=== PATIENT | female | born 1960 | race African-American/Black ===

== ENCOUNTER 2017-07-11 18:14 | Observation (INO) | payer MEDICAID, OTHER ==
[~2017-07-11] VITALS: Ht 172.7 cm; Wt 130.0 kg
[~2017-07-11 18:14] MED LIST: FLEX5TAB OR; IBUP800T23 PO; PRED20 PO; ULTR50TA OR
[2017-07-11 18:15] VITALS: BP 201/101; PULSE 56; RESP 26; TEMP 96.5; O2SAT 98
[2017-07-11] MEDS ORDERED: IOHEXOL 350 MG/ML 10 ML VIAL (for RAD DIAG) IVCONTRAST ONE (18:15)
[2017-07-11] MEDS ORDERED: MELO7.5T27 PO (18:28)
[2017-07-11] MEDS ORDERED: SODIUM CHLOR 0.9% 1000 ML INJ 1,000 ML IV ONE (18:30)
[2017-07-11] MEDS ORDERED: ONDANSETRON HCL 4 MG/2 ML VIAL IV PUSH ONE (18:30)
--- NOTE | 2017-07-11 18:42 | PD ---
HPI Chief Complaint: GI Complaint Time Seen by Provider: 18:19 Travel History International Travel<30 days: No Contact w/Intl Traveler<30days: No Traveled to known affect area: No History of Present Illness HPI 56-year-old female that presents to the ED for evaluation of nausea and dizziness. Per patient she's had this since last night but more severe today. Per patient she feels like the room spinning. She feels nauseous and she's been vomiting. She does having some abdominal discomfort with many from vomiting. She states that anything makes her dizzy. She didn't take anything for this. She denies any medical issues. No history of diabetes or high blood pressure. No chest pain. No shortness of breath. No headache. No blurry vision or double vision. No urinary or bowel movement issues. Almost per patient states that currently she has no pain but she is having low nausea and vomiting and she can barely keep her eyes open no feeling severely nauseous. Denies any history of this in the past. No recent travel. No injuries or trauma. No other medical issues. No allergies to medication. PFSH Past Medical History Diminished Hearing: No Immunizations Current: No Tetanus Vaccination: Unknown Influenza Vaccination: No Tubal Ligation: Yes Past Surgical History Section: Yes (CS X 1) Other Surgery: Yes (I AND D DUE TO SKIN ABSCESS ) Social History Alcohol Use: Yes Tobacco Use: No Substance Use: Yes (MARIJUANA) Allergies-Medications (Allergen,Severity, Reaction): Coded Allergies: No Known Allergies (Verified Adverse Reaction, Unknown, 07/11/17) Reported Meds & Prescriptions Reported Meds & Active Scripts Active Reported Meloxicam 7.5 Mg Tab 7.5 Mg PO DAILY Review of Systems Except as stated in HPI: all other systems reviewed are Neg Physical Exam Narrative GENERAL: Morbidly obese female SKIN: Warm and dry. HEAD: Atraumatic. Normocephalic. EYES: Pupils equal and round. No scleral icterus. No injection or drainage. ENT: No nasal bleeding or discharge. Mucous membranes pink and moist. Tongue is midline. No uvula deviation. TMs are clear with no sign of infection or perforation bilaterally. No lymphadenopathy noted. No meningeal signs noted. NECK: Trachea midline. No JVD. CARDIOVASCULAR: Regular rate and rhythm. No murmurs, S3, S4. RESPIRATORY: No accessory muscle use. Clear to auscultation. Breath sounds equal bilaterally. GASTROINTESTINAL: Abdomen soft, non-tender, nondistended. Hepatic and splenic margins not palpable. MUSCULOSKELETAL: Extremities without clubbing, cyanosis, or edema. No obvious deformities. Full range of motion of the upper and lower extremities bilaterally. 2+ pulses bilaterally. NEUROLOGICAL: Awake and alert. No obvious cranial nerve deficits. Motor grossly within normal limits. Five out of 5 muscle strength in the arms and legs. Normal speech. PSYCHIATRIC: Appropriate mood and affect; insight and judgment normal. Data Data Last Documented VS Vital Signs Date Time Temp Pulse Resp B/P (MAP) Pulse Ox O2 Delivery O2 Flow Rate FiO2 07/11/17 20:27 46 16 150/65 (93) 97 07/11/17 18:44 Room Air 07/11/17 18:15 96.5 Orders Orders Electrocardiogram (07/11/17 18:29) Complete Blood Count With Diff (07/11/17 18:29) Comprehensive Metabolic Panel (07/11/17 18:29) Ckmb (Isoenzyme) Profile (07/11/17 18:29) Troponin I (07/11/17 18:29) Lipase (07/11/17 18:29) Urinalysis - C+S If Indicated (07/11/17 18:29) Magnesium (Mg) (07/11/17 18:29) Thyroid Stimulating Hormone (07/11/17 18:29) Chest, Single Ap (07/11/17 18:29) Ct Brain W/O Iv Contrast(Rout) (07/11/17 18:29) Iv Access Insert/Monitor (07/11/17 18:29) Ecg Monitoring (07/11/17 18:29) Oximetry (07/11/17 18:29) Sodium Chlor 0.9% 1000 Ml Inj (Ns 1000 M (07/11/17 18:30) Ondansetron Inj (Zofran Inj) (07/11/17 18:30) Ct Abd/Pel W Iv Contrast(Rout) (07/11/17 ) Lorazepam Inj (Ativan Inj) (07/11/17 19:45) CKMB (07/11/17 19:39) CKMB% (07/11/17 19:39) Iohexol 350 Inj (Omnipaque 350 Inj) (07/11/17 18:15) Admit Order (Ed Use Only) (07/11/17 21:20) Labs Laboratory Tests Test 07/11/17 18:45 07/11/17 19:39 White Blood Count 7.1 TH/MM3 Red Blood Count 4.84 MIL/MM3 Hemoglobin 14.5 GM/DL Hematocrit 43.7 % Mean Corpuscular Volume 90.2 FL Mean Corpuscular Hemoglobin 29.9 PG Mean Corpuscular Hemoglobin Concent 33.1 % Red Cell Distribution Width 14.6 % Platelet Count 214 TH/MM3 Mean Platelet Volume 8.9 FL Neutrophils (%) (Auto) 67.5 % Lymphocytes (%) (Auto) 27.4 % Monocytes (%) (Auto) 4.1 % Eosinophils (%) (Auto) 0.4 % Basophils (%) (Auto) 0.6 % Neutrophils # (Auto) 4.8 TH/MM3 Lymphocytes # (Auto) 1.9 TH/MM3 Monocytes # (Auto) 0.3 TH/MM3 Eosinophils # (Auto) 0.0 TH/MM3 Basophils # (Auto) 0.0 TH/MM3 CBC Comment DIFF FINAL Differential Comment Blood Urea Nitrogen 12 MG/DL Creatinine 0.89 MG/DL Random Glucose 144 MG/DL Total Protein 7.3 GM/DL Albumin 3.6 GM/DL Calcium Level 8.8 MG/DL Magnesium Level 1.8 MG/DL Alkaline Phosphatase 117 U/L Aspartate Amino Transf (AST/SGOT) 20 U/L Alanine Aminotransferase (ALT/SGPT) 14 U/L Total Bilirubin 0.5 MG/DL Sodium Level 141 MEQ/L Potassium Level 4.0 MEQ/L Chloride Level 108 MEQ/L Carbon Dioxide Level 23.7 MEQ/L Anion Gap 9 MEQ/L Estimat Glomerular Filtration Rate 79 ML/MIN Total Creatine Kinase 161 U/L Creatine Kinase MB 5.0 NG/ML Troponin I LESS THAN 0.02 NG/ML Lipase 68 U/L Thyroid Stimulating Hormone 3rd Gen 2.790 uIU/ML MDM Medical Decision Making Medical Screen Exam Complete: Yes Emergency Medical Condition: Yes Medical Record Reviewed: Yes Interpretation(s) CBC & BMP Diagram 07/11/17 18:45 07/11/17 19:39 Total Protein 7.3, Albumin 3.6, Calcium Level 8.8, Magnesium Level 1.8, Alkaline Phosphatase 117, Aspartate Amino Transf (AST/SGOT) 20, Alanine Aminotransferase (ALT/SGPT) 14, Total Bilirubin 0.5 CT head negative EKG shows sinus rhythm with no sign of acute ischemia but sinus bradycardia in the 40s troponin and CKMB negative TSH WNL CT abdomen WNL Differential Diagnosis Dizziness versus vertigo versus nausea versus gastritis versus gastroenteritis versus CVA versus ACS versus acute abdomen Narrative Course 56-year-old female that presents to the ED for evaluation of dizziness and nausea. Patient was properly examined and was found to have signs and symptoms. possible vertigo. Labs and imaging were ordered. Patient was given IV fluids and Zofran as she is actively vomiting. Labs and imaging showed no sign of acute disease other than what appears to be sinus bradycardia. Patient still very symptomatic. Patient cannot stand up without feeling nauseous and almost threw up when we try to get her up. At this time recommendation is for admission for further eval. She agrees with this plan. Case discussed with Dr Mo who agrees to obs admission. Diagnosis Primary Impression: Dizziness Additional Impressions: Nausea & vomiting Qualified Codes: R11.2 - Nausea with vomiting, unspecified Bradycardia Admitting Information Admitting Physician Requests: Observation Bo Victoria Jul 11, 2017 18:42
[2017-07-11 18:44] VITALS: RESP 16; O2SAT 99
--- NOTE | 2017-07-11 18:59 | RADRPT ---
EXAM DATE/TIME: 07/11/2017 18:52 [facility] COMPARISON: No previous studies available for comparison. INDICATIONS : Dizziness. RADIATION DOSE: 56.35 CTDIvol (mGy) MEDICAL HISTORY : None SURGICAL HISTORY : Tubal ligation. ENCOUNTER: Initial ACUITY: 1 day PAIN SCALE: 0/10 LOCATION: cranial TECHNIQUE: Multiple contiguous axial images were obtained of the head. Using automated exposure control and adj ustment of the mA and/or kV according to patient size, radiation dose was kept as low as reasonably a chievable to obtain optimal diagnostic quality images. DICOM format image data is available electro nically for review and comparison. FINDINGS: CEREBRUM: Ventricle's are within normal limits. There is a nonspecific 6 mm calcification in the right occipita l lobe. No evidence of midline shift, mass lesion, hemorrhage or acute infarction. No extra-axial f luid collections are seen. POSTERIOR FOSSA: The cerebellum and brainstem demonstrate no acute finding. The 4th ventricle is midline. The cerebe llopontine angle is unremarkable. EXTRACRANIAL: Visualized sinuses are clear. SKULL: The calvaria is intact. No evidence of skull fracture. CONCLUSION: No acute intracranial abnormality is identified. Phu Henley MD on July 11, 2017 at 18:55 Board Certified Radiologist. This report was verified electronically.
[2017-07-11 19:02] LABS: AUTOMATED NEUTROPHIL # 4.8 TH/MM3 (1.8-7.7); BASOPHIL % 0.6 % (0.0-2.0); EOSINOPHIL % 0.4 % (0.0-4.0); HEMATOCRIT 43.7 % (35.0-46.0); HEMOGLOBIN 14.5 GM/DL (11.6-15.3); LYMPH % 27.4 % (9.0-44.0); LYMPHOCYTE # 1.9 TH/MM3 (1.0-4.8); MEAN CELL VOLUME 90.2 FL (80.0-100.0); MEAN CORPUSCULAR HEMOGLOBIN 29.9 PG (27.0-34.0); MEAN CORPUSCULAR HGB CONC 33.1 % (32.0-36.0); MEAN PLATELET VOLUME 8.9 FL (7.0-11.0); MONO % 4.1 % (0.0-8.0); MONOCYTE # 0.3 TH/MM3 (0-0.9); NEUT % 67.5 % (16.0-70.0); PLATELET COUNT 214 TH/MM3 (150-450); RED BLOOD COUNT 4.84 MIL/MM3 (4.00-5.30); RED CELL DISTRIBUTION WIDTH 14.6 % (11.6-17.2); WHITE BLOOD COUNT 7.1 TH/MM3 (4.0-11.0)
--- NOTE | 2017-07-11 19:12 | RADRPT ---
EXAM DATE/TIME: 07/11/2017 18:59 [facility] COMPARISON: No previous studies available for comparison. INDICATIONS : Shortness of breath. MEDICAL HISTORY : None. SURGICAL HISTORY : Tubal ligation. ENCOUNTER: Initial ACUITY: 1 day PAIN SCORE: 0/10 LOCATION: Bilateral chest FINDINGS: Portable AP view of the chest demonstrates a normal-sized cardiac silhouette. No effusion, consolidat ion, or pneumothorax is visualized. The bones and soft tissues demonstrate no acute abnormality. Lung s are mildly underinflated with atelectasis at the bases. EKG lines overlie the patient. CONCLUSION: Underinflation with atelectasis at the bases. Otherwise, no acute finding is identified. Phu Henley MD on July 11, 2017 at 19:09 Board Certified Radiologist. This report was verified electronically.
[2017-07-11] MEDS ORDERED: LORazepam 2 MG/ML VIAL IV PUSH ONE (19:45)
[2017-07-11 20:07] LABS: ALT (GPT) 14 U/L (10-53)
[2017-07-11 20:24] LABS: ALBUMIN 3.6 GM/DL (3.4-5.0); ALKALINE PHOSPHATASE 117 U/L (45-117); AST (GOT) 20 U/L (15-37); BICARBONATE 23.7 MEQ/L (21.0-32.0); BLOOD UREA NITROGEN 12 MG/DL (7-18); CALCIUM 8.8 MG/DL (8.5-10.1); CHLORIDE 108 MEQ/L (98-107); CREATININE 0.89 MG/DL (0.50-1.00); GLOMERULAR FILTRATION RATE 79 ML/MIN (>89); GLUCOSE,RANDOM 144 MG/DL (74-106); MAGNESIUM 1.8 MG/DL (1.5-2.5); SODIUM (NA) 141 MEQ/L (136-145); TOTAL BILIRUBIN ADULT 0.5 MG/DL (0.2-1.0); TOTAL PROTEIN 7.3 GM/DL (6.4-8.2); TROPONIN I LESS THAN 0.02 NG/ML (0.02-0.05)
[2017-07-11 20:27] VITALS: BP 150/65; PULSE 46; RESP 16; O2SAT 97
--- NOTE | 2017-07-11 20:56 | RADRPT ---
EXAM DATE/TIME: 07/11/2017 20:38 [facility] COMPARISON: No previous studies available for comparison. INDICATIONS : Abdominal pain, fever, and body aches. IV CONTRAST: 97 cc Omnipaque 350 (iohexol) IV ORAL CONTRAST: No oral contrast ingested. RADIATION DOSE: 26.88 CTDIvol (mGy) ; Patient body habitus MEDICAL HISTORY : None SURGICAL HISTORY : Tubal ligation. ENCOUNTER: Initial ACUITY: 1 day PAIN SCALE: 5/10 LOCATION: abdomen TECHNIQUE: Volumetric scanning of the abdomen and pelvis was performed. Using automated exposure control and ad justment of the mA and/or kV according to patient size, radiation dose was kept as low as reasonably achievable to obtain optimal diagnostic quality images. DICOM format image data is available electro nically for review and comparison. FINDINGS: LOWER LUNGS: The visualized lower lungs are clear. LIVER: Homogeneous density without lesion. There is no dilation of the biliary tree. No calcified gallston es. SPLEEN: Normal size without lesion. PANCREAS: Within normal limits. KIDNEYS: Normal in size and shape. There is no mass, stone or hydronephrosis. An incidental 6 mm low density lesion is present in the left mid kidney and is too small to characterize. ADRENAL GLANDS: Within normal limits. VASCULAR: There is no aortic aneurysm. BOWEL/MESENTERY: The stomach, small bowel, and colon demonstrate no acute abnormality. There is no free intraperitone al air or fluid. There is a small hiatal hernia. ABDOMINAL WALL: There is a small fat-containing umbilical hernia in the midline superior to the umbilicus. RETROPERITONEUM: There is no lymphadenopathy. BLADDER: No wall thickening or mass. REPRODUCTIVE: Uterus has a lobulated contour. INGUINAL: There is no lymphadenopathy or hernia. MUSCULOSKELETAL: There is severe end-stage right hip joint osteoarthritis with severe joint space narrowing and osteop hytes with mild acetabular protrusio. Left total hip arthroplasty hardware is present and causes beam hardening artifact in the pelvis. CONCLUSION: 1. No acute finding is identified within the abdomen or pelvis. 2. 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 Phu Henley MD on July 11, 2017 at 20:50 Board Certified Radiologist. This report was verified electronically.
--- NOTE | 2017-07-11 21:21 | PD ---
Physical Exam Date Seen by Provider: Jul 11, 2017 Narrative This patient presents with nausea and dizziness. Data Data Last Documented VS Vital Signs Date Time Temp Pulse Resp B/P (MAP) Pulse Ox O2 Delivery O2 Flow Rate FiO2 07/11/17 20:27 46 16 150/65 (93) 97 07/11/17 18:44 Room Air 07/11/17 18:15 96.5 Orders Orders Electrocardiogram (07/11/17 18:29) Complete Blood Count With Diff (07/11/17 18:29) Comprehensive Metabolic Panel (07/11/17 18:29) Ckmb (Isoenzyme) Profile (07/11/17 18:29) Troponin I (07/11/17 18:29) Lipase (07/11/17 18:29) Urinalysis - C+S If Indicated (07/11/17 18:29) Magnesium (Mg) (07/11/17 18:29) Thyroid Stimulating Hormone (07/11/17 18:29) Chest, Single Ap (07/11/17 18:29) Ct Brain W/O Iv Contrast(Rout) (07/11/17 18:29) Iv Access Insert/Monitor (07/11/17 18:29) Ecg Monitoring (07/11/17 18:29) Oximetry (07/11/17 18:29) Sodium Chlor 0.9% 1000 Ml Inj (Ns 1000 M (07/11/17 18:30) Ondansetron Inj (Zofran Inj) (07/11/17 18:30) Ct Abd/Pel W Iv Contrast(Rout) (07/11/17 ) Lorazepam Inj (Ativan Inj) (07/11/17 19:45) CKMB (07/11/17 19:39) CKMB% (07/11/17 19:39) Iohexol 350 Inj (Omnipaque 350 Inj) (07/11/17 18:15) Admit Order (Ed Use Only) (07/11/17 21:20) Labs Laboratory Tests Test 07/11/17 18:45 07/11/17 19:39 White Blood Count 7.1 TH/MM3 Red Blood Count 4.84 MIL/MM3 Hemoglobin 14.5 GM/DL Hematocrit 43.7 % Mean Corpuscular Volume 90.2 FL Mean Corpuscular Hemoglobin 29.9 PG Mean Corpuscular Hemoglobin Concent 33.1 % Red Cell Distribution Width 14.6 % Platelet Count 214 TH/MM3 Mean Platelet Volume 8.9 FL Neutrophils (%) (Auto) 67.5 % Lymphocytes (%) (Auto) 27.4 % Monocytes (%) (Auto) 4.1 % Eosinophils (%) (Auto) 0.4 % Basophils (%) (Auto) 0.6 % Neutrophils # (Auto) 4.8 TH/MM3 Lymphocytes # (Auto) 1.9 TH/MM3 Monocytes # (Auto) 0.3 TH/MM3 Eosinophils # (Auto) 0.0 TH/MM3 Basophils # (Auto) 0.0 TH/MM3 CBC Comment DIFF FINAL Differential Comment Blood Urea Nitrogen 12 MG/DL Creatinine 0.89 MG/DL Random Glucose 144 MG/DL Total Protein 7.3 GM/DL Albumin 3.6 GM/DL Calcium Level 8.8 MG/DL Magnesium Level 1.8 MG/DL Alkaline Phosphatase 117 U/L Aspartate Amino Transf (AST/SGOT) 20 U/L Alanine Aminotransferase (ALT/SGPT) 14 U/L Total Bilirubin 0.5 MG/DL Sodium Level 141 MEQ/L Potassium Level 4.0 MEQ/L Chloride Level 108 MEQ/L Carbon Dioxide Level 23.7 MEQ/L Anion Gap 9 MEQ/L Estimat Glomerular Filtration Rate 79 ML/MIN Total Creatine Kinase 161 U/L Creatine Kinase MB 5.0 NG/ML Troponin I LESS THAN 0.02 NG/ML Lipase 68 U/L Thyroid Stimulating Hormone 3rd Gen 2.790 uIU/ML MDM Supervised Visit with LUZ: Yes Narrative Course I, Dr. Gutierrez, have reviewed the advance practice practitioner's documentation and am in agreement, met with the patient face to face, made the diagnosis, and the medical decision making was done by me. *My assessment and Findings: Patient is awake and alert. She is not hypotensive. She has been bradycardic. She does not take any medications to explain the bradycardia. The bradycardia is sinus. See Jacquelin Duran note for lab and radiology results, final diagnosis and disposition Lynn Gutierrez MD Jul 11, 2017 21:21
--- NOTE | 2017-07-11 21:26 | HHI.HP ---
[facility] Phu Doll MD Admission Diagnosis dizziness, nausea, vertigo, bradycardia Diagnoses: (1) Vertigo Diagnosis: Principal (2) Intractable nausea and vomiting Diagnosis: Principal (3) Dehydration Diagnosis: Principal (4) Bradycardia Diagnosis: Principal Travel History International Travel<30 Days: No Contact w/Intl Traveler <30 Da: No Traveled to Known Affected Are: No History of Present Illness This is a 56-year-old female with no reported PMH who presented to the ER with complaints of dizziness in addition to nausea and vomiting. States symptoms started acutely last night. Reports feeling as though "the room is spinning". No previous h/o similar symptoms, states last time she had nausea/vomiting was when she was 28yrs ago. Denies nasal congestion or otalgia. On arrival, BP 201/101, HR 56, O2 sat 98% on RA, Afebrile. Currently 150/65, HR 46. Per review of records, patient with chronic bradycardia. CBC unremarkable. GFR 79. Negative. Lipase 68. CXR with no acute findings. CT Head negative. CT Abdomen/Pelvis negative for acute findings. S/p Meclizine and Ativan in ER w/ some improvement, however had recurrent nausea/vomiting and dizziness upon standing. Review of Systems Except as stated in HPI: all other systems reviewed are Neg ROS: 14 point review of systems otherwise negative. Past Family Social History Past Medical History PMH: None Past Surgical History PAST SURGICAL HISTORY: Allergies: Coded Allergies: No Known Allergies (Verified Adverse Reaction, Unknown, 07/11/17) Family History PAST FAMILY HISTORY: Reviewed. No h/o DM or CAD Social History PAST SOCIAL HISTORY: Occasional alcohol. Negative for tobacco. Positive for Marijuana. Physical Exam Vital Signs Vital Signs Date Time Temp Pulse Resp B/P (MAP) Pulse Ox O2 Delivery O2 Flow Rate FiO2 07/11/17 20:27 46 16 150/65 (93) 97 07/11/17 18:44 16 99 Room Air 07/11/17 18:23 16 07/11/17 18:15 96.5 56 26 201/101 (134) 98 Physical Exam PE: GENERAL: Pleasant middle-aged black female in no acute distress, lying in bed w / eyes closed due to dizziness. HEENT: PERRLA, EOMI. No scleral icterus or conjunctival pallor. No lid lag or facial droop. CARDIOVASCULAR: Bradycardia. No obvious murmurs to auscultation. No chest tenderness to palpation. RESPIRATORY: No obvious rhonchi or wheezing. Clear to auscultation. Breath sounds equal bilaterally. GASTROINTESTINAL: Abdomen soft, non-tender, nondistended. BS normal. MUSCULOSKELETAL: Extremities without clubbing, cyanosis, or edema. No obvious deformities. NEUROLOGICAL: Awake, alert and oriented x4. No focal neurologic deficits. Moving both upper and lower extremities spontaneously. Laboratory Laboratory Tests Test 07/11/17 18:45 07/11/17 19:39 White Blood Count 7.1 Red Blood Count 4.84 Hemoglobin 14.5 Hematocrit 43.7 Mean Corpuscular Volume 90.2 Mean Corpuscular Hemoglobin 29.9 Mean Corpuscular Hemoglobin Concent 33.1 Red Cell Distribution Width 14.6 Platelet Count 214 Mean Platelet Volume 8.9 Neutrophils (%) (Auto) 67.5 Lymphocytes (%) (Auto) 27.4 Monocytes (%) (Auto) 4.1 Eosinophils (%) (Auto) 0.4 Basophils (%) (Auto) 0.6 Neutrophils # (Auto) 4.8 Lymphocytes # (Auto) 1.9 Monocytes # (Auto) 0.3 Eosinophils # (Auto) 0.0 Basophils # (Auto) 0.0 CBC Comment DIFF FINAL Differential Comment Blood Urea Nitrogen 12 Creatinine 0.89 Random Glucose 144 Total Protein 7.3 Albumin 3.6 Calcium Level 8.8 Magnesium Level 1.8 Alkaline Phosphatase 117 Aspartate Amino Transf (AST/SGOT) 20 Alanine Aminotransferase (ALT/SGPT) 14 Total Bilirubin 0.5 Sodium Level 141 Potassium Level 4.0 Chloride Level 108 Carbon Dioxide Level 23.7 Anion Gap 9 Estimat Glomerular Filtration Rate 79 Total Creatine Kinase 161 Creatine Kinase MB 5.0 Troponin I LESS THAN 0.02 Lipase 68 Thyroid Stimulating Hormone 3rd Gen 2.790 Result Diagram: 07/11/17184407/11/171938 Caprini VTE Risk Assessment Caprini VTE Risk Assessment: No/Low Risk (score <= 1) Caprini Risk Assessment Model Point Value = 1 Point Value = 2 Point Value = 3 Point Value = 5 Age 41-60 Minor surgery BMI > 25 kg/m2 Swollen legs Varicose veins or History of unexplained or recurrent spontaneous Oral contraceptives or hormone replacement Sepsis (< 1 month) Serious lung disease, including pneumonia (< 1 month) Abnormal pulmonary function Acute myocardial infarction Congestive heart failure (< 1 month) History of inflammatory bowel disease Medical patient at bed rest Age 61-74 Arthroscopic surgery Major open surgery (> 45 min) Laparoscopic surgery (> 45 min) Malignancy Confined to bed (> 72 hours) Immobilizing plaster cast Central venous access Age >= 75 History of VTE Family history of VTE Factor V Leiden Prothrombin [id number] Lupus anticoagulant Anticardiolipin antibodies Elevated serum homocysteine Heparin-induced thrombocytopenia Other congenital or acquired thrombophilia Stroke (< 1 month) Elective arthroplasty Hip, pelvis, or leg fracture Acute spinal cord injury (< 1 month) Prophylaxis Regimen Total Risk Factor Score Risk Level Prophylaxis Regimen 0-1 Low Early ambulation 2 Moderate Order ONE of the following: *Sequential Compression Device (SCD) *Heparin 5000 units SQ BID 3-4 Higher Order ONE of the following medications: *Heparin 5000 units SQ TID *Enoxaparin/Lovenox 40 mg SQ daily (WT < 150 kg, CrCl > 30 mL/min) *Enoxaparin/Lovenox 30 mg SQ daily (WT < 150 kg, CrCl > 10-29 mL/min) *Enoxaparin/Lovenox 30 mg SQ BID (WT < 150 kg, CrCl > 30 mL/min) AND/OR *Sequential Compression Device (SCD) 5 or more Highest Order ONE of the following medications: *Heparin 5000 units SQ TID (Preferred with Epidurals) *Enoxaparin/Lovenox 40 mg SQ daily (WT < 150 kg, CrCl > 30 mL/min) *Enoxaparin/Lovenox 30 mg SQ daily (WT < 150 kg, CrCl > 10-29 mL/min) *Enoxaparin/Lovenox 30 mg SQ BID (WT < 150 kg, CrCl > 30 mL/min) AND *Sequential Compression Device (SCD) Assessment and Plan Problem List: (1) Vertigo ICD Code: R42 - Dizziness and giddiness (2) Intractable nausea and vomiting ICD Code: R11.2 - Nausea with vomiting, unspecified (3) Bradycardia ICD Code: R00.1 - Bradycardia, unspecified Status: Acute (4) Dehydration ICD Code: E86.0 - Dehydration Assessment and Plan A/P: 1. Vertigo: acute onset of dizziness, s/p Meclizine and Ativan w/ some improvement. CT Head w/ no acute findings, images reviewed by me. Continue w/ Meclizine and Ativan. PT for eval/tx. Consider MRI Brain if no improvement in symptoms. 2. Intractable NV: secondary to above. Analgesics/antiemetics as needed, IVF for hydration. Diet as tolerated. 3. Bradycardia: Chronic per review of vitals from 2011, possibly compounding above symptoms. No prior work up. Initial trop negative. Admit for Observation, Telemetry, check serial cardiac enzymes to eval for underlying ischemia. Check Echo to eval for possible valvular abnormality/cardiomyopathy. 4. Dehydration: GFR 79, IVF for hydration. Check U/a to eval for UTI possibly contributing to above symptoms. Start IV Abx if +UTI. IVF for hydration. 5. DVT Prophylaxis: SCD/Teds. 6. Social work for d/c planning as needed. 7. Case discussed w/ ER physician at length, labs/records/imaging reviewed by me. Valerie Mo MD Jul 11, 2017 21:26
[2017-07-11] MEDS ORDERED: LORazepam 2 MG/ML VIAL IV PUSH PRN (21:30)
[2017-07-11] MEDS ORDERED: ACETAMINOPHEN 325 MG TAB PO PRN (21:30)
[2017-07-11] MEDS ORDERED: SODIUM CHLORIDE 0.9% FLUSH 10 ML FLUSH IV FLUSH PRN (21:30)
[2017-07-11] MEDS ORDERED: LACTULOSE SYRUP 20 GM/30 ML CUP PO PRN (21:30)
[2017-07-11] MEDS ORDERED: ACETAMINOPHEN/HYDROcodone 325 MG/5 MG TAB PO PRN (21:30)
[2017-07-11] MEDS ORDERED: SENNOSIDES 8.6 MG TAB PO PRN (21:30)
[2017-07-11] MEDS ORDERED: MECLIZINE HCL 25 MG TAB PO PRN (21:30)
[2017-07-11] MEDS ORDERED: MORPHINE SULFATE 2 MG/ML INJ IV PUSH PRN (21:30)
[2017-07-11] MEDS ORDERED: MAGNESIUM HYDROXIDE SUSP 30 ML CUP PO PRN (21:30)
[2017-07-11] MEDS ORDERED: BISACODYL 10 MG SUPP RECTAL PRN (21:30)
[2017-07-12] VITALS (8 sets, daily range): BP systolic 131–157; BP diastolic 63–82; PULSE 40–53; RESP 18; TEMP 97.6–98.5; O2SAT 96–99
[2017-07-12] MEDS: SODIUM CHLOR 0.9% 1000 ML INJ 1,000 ML IV SCH ×3 (04:33→17:23)
[2017-07-12] MEDS ORDERED: MECLIZINE HCL 25 MG TAB PO ONE (08:15)
[2017-07-12] MEDS: ONDANSETRON HCL 4 MG/2 ML VIAL IVP PRN ×2 (08:34→14:31)
[2017-07-12] MEDS: DOCUSATE SODIUM 50 MG/SENNA 8.6 MG TAB PO SCH ×2 (08:34→21:30)
[2017-07-12] MEDS: SODIUM CHLORIDE 0.9% FLUSH 10 ML FLUSH IV FLUSH SCH ×2 (08:34→21:00)
--- NOTE | 2017-07-12 08:56 | HHI.PR ---
Subjective Remarks Follow up on patient with vertigo. Patient seen and examined. Still feeling very nauseous with this. Complains of mild diffuse abdominal soreness from recurrent vomiting episodes. Denies any chest pain. Denies any shortness of breath. Denies any fever or chills. Objective Vitals Vital Signs Date Time Temp Pulse Resp B/P (MAP) Pulse Ox O2 Delivery O2 Flow Rate FiO2 07/12/17 07:03 98.0 52 18 144/70 (94) 99 07/12/17 05:39 98.5 53 18 147/76 (99) 96 07/12/17 00:14 98.1 44 18 147/78 (101) 97 07/11/17 22:26 07/11/17 20:27 46 16 150/65 (93) 97 07/11/17 18:44 16 99 Room Air 07/11/17 18:23 16 07/11/17 18:15 96.5 56 26 201/101 (134) 98 I/O 07/11/17 07/11/17 07/11/17 07/12/17 07/12/17 07/12/17 07:00 15:00 23:00 07:00 15:00 23:00 Intake Total 300 ml Balance 300 ml Intake Oral 300 ml Result Diagram: 07/11/17 1845 07/11/17 193 Imaging Last Impressions Head CT 07/11/171828 Signed Impressions: Service Date/Time: Tuesday, July 11, 2017 18:52 - CONCLUSION: No acute intracranial abnormality is identified. Phu Henley MD Chest X-Ray 07/11/171828 Signed Impressions: Service Date/Time: Tuesday, July 11, 2017 18:59 - CONCLUSION: Underinflation with atelectasis at the bases. Otherwise, no acute finding is identified. Phu Henley MD Abdomen/Pelvis CT 07/11/17 0000 Signed Impressions: Service Date/Time: Tuesday, July 11, 2017 20:38 - CONCLUSION: 1. No acute finding is identified within the abdomen or pelvis. 2. 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 Phu Henley MD Objective Remarks GENERAL: Well-developed well-nourished overweight middle-aged black female in no acute distress, lying in bed w/ eyes closed due to dizziness. Active dry heaves. SKIN: Warm and dry. No rash. HEAD: Atraumatic, normocephalic. No facial droop. EYES: Extraocular movements intact. No sclera icterus. No lid lag. ENT: No nasal bleeding or drainage. Airway patent. Moist mucous membranes. NECK: Trachea midline. CARDIOVASCULAR: Bradycardia. No murmurs rubs or gallops appreciated. RESPIRATORY: Nonlabored. No obvious rhonchi or wheezing. Clear to auscultation. Breath sounds equal bilaterally. GASTROINTESTINAL: Abdomen soft, nondistended. BS normal. (+) Mild tenderness to palpation diffusely. MUSCULOSKELETAL: Extremities without clubbing, cyanosis, or edema. No obvious deformities. NEUROLOGICAL: Awake, alert and oriented x4. No focal neurologic deficits. Moving both upper and lower extremities spontaneously. Medications and IVs Current Medications Medications (Trade) Dose Ordered Sig/Rm Route Start Time Stop Time Status Last Admin (Antivert) 25 mg Q6H PRN PO 07/11/17 21:30 (Ativan Inj) 1 mg Q2H PRN IV PUSH 07/11/17 21:30 Sodium Chloride 1,000 ml @ 100 mls/hr Q10H IV 07/11/17 21:23 07/12/17 04:33 (NS Flush) 2 ml UNSCH PRN IV FLUSH 07/11/17 21:30 (NS Flush) 2 ml BID IV FLUSH 07/12/17 09:00 (Zofran Inj) 4 mg Q6H PRN IVP 07/11/17 21:30 (Tylenol) 650 mg Q6H PRN PO 07/11/17 21:30 ([place] 5-325 Mg) 1 tab Q4H PRN PO 07/11/17 21:30 (Morphine Inj) 2 mg Q3H PRN IV PUSH 07/11/17 21:30 (Nora-Colace) 1 tab BID PO 07/12/17 09:00 (Milk Of Magnesia Liq) 30 ml Q12H PRN PO 07/11/17 21:30 (Senokot) 17.2 mg Q12H PRN PO 07/11/17 21:30 (Dulcolax Supp) 10 mg DAILY PRN RECTAL 07/11/17 21:30 (Lactulose Liq) 30 ml DAILY PRN PO 07/11/17 21:30 (Antivert) 25 mg Q8HR PO 07/12/17 14:00 A/P Problem List: (1) Vertigo ICD Code: R42 - Dizziness and giddiness (2) Intractable nausea and vomiting ICD Code: R11.2 - Nausea with vomiting, unspecified (3) Bradycardia ICD Code: R00.1 - Bradycardia, unspecified Status: Acute (4) Dehydration ICD Code: E86.0 - Dehydration Assessment and Plan 56-year-old female that presents to the ED for evaluation of dizziness and nausea. Vertigo Acute onset of dizziness, s/p Meclizine and Ativan w/ some improvement in the ED. -CT Head w/ no acute findings, images reviewed by me. -Change prn meclizine to scheduled meclizine -Ativan as needed -PT for eval/tx -Consider MRI Brain if no improvement in symptoms -check UDS Intractable NV: secondary to above. -Analgesics/antiemetics as needed -Continue IVF for hydration -Diet as tolerated Bradycardia: Chronic per review of vitals from 2011, possibly compounding above symptoms. No prior work up. -Patient has no cardiac complaints at this time -Trops negative x 2 -Continuous cardiac monitoring -2D echo for possible valvular abnormality/cardiomyopathy, pending Dehydration: GFR 79 Secondary to intractable nausea vomiting -Continue IVF for hydration -Check U/a to eval for UTI possibly contributing to above symptoms/pending -Start IV Abx if +UTI. Hyperglycemia: BS 144 at admission -No reported history of diabetes -Obtain hemoglobin A1c DVT Prophylaxis: SCD/Teds. Dinorah Rodirges Jul 12, 2017 08:56
[2017-07-12 12:08] LABS: ALBUMIN 3.1 GM/DL (3.4-5.0); AST (GOT) 18 U/L (15-37); BICARBONATE 19.6 MEQ/L (21.0-32.0); BLOOD UREA NITROGEN 10 MG/DL (7-18); CALCIUM 8.2 MG/DL (8.5-10.1); CHLORIDE 109 MEQ/L (98-107); CREATININE 0.64 MG/DL (0.50-1.00); GLOMERULAR FILTRATION RATE 116 ML/MIN (>89); GLUCOSE,RANDOM 97 MG/DL (74-106); SODIUM (NA) 140 MEQ/L (136-145)
[2017-07-12 12:12] LABS: ALKALINE PHOSPHATASE 104 U/L (45-117); ALT (GPT) 14 U/L (10-53); TOTAL BILIRUBIN ADULT 0.3 MG/DL (0.2-1.0); TOTAL PROTEIN 6.5 GM/DL (6.4-8.2); TROPONIN I LESS THAN 0.02 NG/ML (0.02-0.05)
[2017-07-12 13:56] LABS: BASOPHIL % 0.3 % (0.0-2.0); EOSINOPHIL % 0.2 % (0.0-4.0); HEMATOCRIT 40.3 % (35.0-46.0); HEMOGLOBIN 13.2 GM/DL (11.6-15.3); LYMPH % 20.3 % (9.0-44.0); LYMPHOCYTE # 1.4 TH/MM3 (1.0-4.8); MEAN CORPUSCULAR HEMOGLOBIN 29.4 PG (27.0-34.0); MEAN CORPUSCULAR HGB CONC 32.7 % (32.0-36.0); MONO % 4.6 % (0.0-8.0); MONOCYTE # 0.3 TH/MM3 (0-0.9); NEUT % 74.6 % (16.0-70.0); PLATELET COUNT 182 TH/MM3 (150-450); RED BLOOD COUNT 4.48 MIL/MM3 (4.00-5.30); RED CELL DISTRIBUTION WIDTH 14.6 % (11.6-17.2); WHITE BLOOD COUNT 6.8 TH/MM3 (4.0-11.0)
[2017-07-12] MEDS: MECLIZINE HCL 25 MG TAB PO SCH ×2 (14:30→21:30)
[2017-07-12 14:33] LABS: HEMOGLOBIN A1C 6.4 % (4.3-6.0)
--- NOTE | 2017-07-12 14:39 | EKG ---
Date Performed: 07/11/2017 Time Performed: 18:40:08 PTAGE: 56 years EKG: SINUS BRADYCARDIA Prolonged corrected QT interval BORDERLINE ECG NO PREVIOUS TRACING DOCTOR: Vu Lorenz Interpretating Date/Time 07/12/2017 14:37:04
--- NOTE | 2017-07-12 16:54 | MB ---
cc: LAURA CHERY DATE OF CONSULTATION: 07/12/2017. HISTORY OF PRESENT ILLNESS: This is a 56-year-old black female with no previous cardiac history who presented to the emergency room with dizziness, nausea, and vomiting. She had feeling of vertigo with the room spinning. She has not had any chest pain, shortness of breath or peripheral edema. She has mild sinus bradycardia. Meclizine resulted some improvement. She still has mild postural dizziness. PAST MEDICAL HISTORY: Past medical history is negative for hypertension, dyslipidemia, diabetes mellitus, coronary disease or CVA. PAST SURGICAL HISTORY: No major surgeries. History of . MEDICATIONS: Meloxicam. ALLERGIES: None. SOCIAL HISTORY: The patient does not smoke. She drinks alcohol socially. She also smokes marijuana occasionally. FAMILY HISTORY: Family history is negative for heart disease. REVIEW OF SYSTEMS: Review of systems is otherwise negative. PHYSICAL EXAMINATION: VITAL SIGNS: Blood pressure count 157/68. Pulse 47 and regular. HEAD, EYES, EARS, NOSE, THROAT: Negative. NECK: 2+ carotid upstrokes, no bruits. LUNGS: Clear. HEART: Regular with no murmurs, rubs or gallops. ABDOMEN: Abdomen soft. No bruits. EXTREMITIES: Without edema. 2+ distal pulses. NEUROLOGIC: Grossly nonfocal. EKGS: EKG was reviewed and showed sinus bradycardia, increased Q-T-C LABORATORY DATA: Hemoglobin 13.8 to potassium 3.9, creatinine 0.6. Troponin negative x3. AST and ALT normal. DIAGNOSIS: 1. Vertigo. 2. Sinus bradycardia. 3. Nausea and vomiting. 4. Dehydration. DISPOSITION: Ms. Sky presented with vertigo. She does not have any angina or heart failure symptoms. She has mild to moderate sinus bradycardia but it certainly does not explain all her symptoms. At this time, I recommend continuing evaluation of her vertigo. Will obtain an echocardiogram to evaluate her left ventricular function. She will be monitored on telemetry. I will follow her for cardiology during her hospitalization. MD ESTELITA Farah/KAYCE /4:27 PM /4:44 PM
[2017-07-12 19:48] LABS: BACTERIA, URINE RARE /hpf; BILIRUBIN, URINE NEG (NEG); BLOOD, URINE TRACE (NEG); GLUCOSE,URINE NEG (NEG); KETONE, URINE 10 mg/dL (NEG); MUCUS URINE FEW /lpf (OCC); NITRITE,URINE NEG (NEG); SQUAMOUS EPITHELIAL CELL URINE 3 /hpf (0-5); URINE COLOR YELLOW (YELLW/STRAW); URINE LEUKOCYTE ESTERASE NEG (NEG)
[2017-07-13 05:41] VITALS: BP 143/65; PULSE 42; RESP 18; TEMP 98.1; O2SAT 98
[2017-07-13] MEDS: MECLIZINE HCL 25 MG TAB PO SCH ×2 (06:32→17:06)
[2017-07-13] MEDS: SODIUM CHLOR 0.9% 1000 ML INJ 1,000 ML IV SCH (06:33)
[2017-07-13 07:09] VITALS: BP 163/77; PULSE 50; RESP 16; TEMP 98.6; O2SAT 96
[2017-07-13 08:00] VITALS: PULSE 52
[2017-07-13] MEDS: SODIUM CHLORIDE 0.9% FLUSH 10 ML FLUSH IV FLUSH SCH (09:00)
[2017-07-13] MEDS: DOCUSATE SODIUM 50 MG/SENNA 8.6 MG TAB PO SCH (09:00)
[2017-07-13] MEDS ORDERED: ONDA4TAB7 SL (09:09)
[2017-07-13] MEDS ORDERED: MECL1TAB42 PO (09:09)
--- NOTE | 2017-07-13 09:12 | HHI.DCPOC ---
Discharge Care Plan Diagnosis: (1) Vertigo (2) Intractable nausea and vomiting (3) Bradycardia (4) Dizziness (5) Prediabetes Goals to Promote Your Health * To prevent worsening of your condition and complications * To maintain your health at the optimal level Directions to Meet Your Goals Recommend implementing a home exercise program and eating a healthy diet of fresh fruits, vegetables, lean protein and staying away from fried/sugary/fatty foods. Recommend repeating Hemoglobin A1C test in 3 months Take your medications as prescribed Follow your dietary instruction Follow activity as directed Keep your appointments as scheduled Take your immunizations and boosters as scheduled If your symptoms worsen call your PCP, if no PCP go to Urgent Care Center or Emergency Room Smoking is Dangerous to Your Health. Avoid second hand smoke Call the 24-hour hour crisis hotline for domestic abuse at Dinorah Rodriges Jul 13, 2017 09:12
--- NOTE | 2017-07-13 11:12 | HHI.FF ---
Face to Face Verification Diagnosis: (1) Vertigo (2) Intractable nausea and vomiting (3) Dehydration (4) Nausea & vomiting Physical Therapy Order: Evaluate and Treat (Vestibular training), Improve ambulation I have seen patient Emily Sky on 07/13/17. My clinical findings support the need for the requested home health care services because: High risk of falls I certify that my clinical findings support that this patient is homebound because: Unsteady gait/balance Unable to use public transportation Dinorah Rodriges Jul 13, 2017 11:12
[2017-07-13 13:28] VITALS: BP 141/65; PULSE 47; RESP 18; TEMP 98.6; O2SAT 95
--- NOTE | 2017-07-13 13:30 | HHI.PR ---
Subjective Remarks Follow-up on patient with the [facility]. Patient seen and examined. Patient much improved. She is able to eat dinner last night. Denies any issues with nausea , vomiting or dizziness this morning. Denies any complaints of headaches. Denies any fever chills. Denies any chest pain or shortness of breath. Discussed with patient findings of prediabetes with hemoglobin A1c of 6.4. Discussed lifestyle modification and need for further follow-up in 3 months to have level rechecked. Objective Vitals Vital Signs Date Time Temp Pulse Resp B/P (MAP) Pulse Ox O2 Delivery O2 Flow Rate FiO2 07/13/17 08:00 52 07/13/17 07:09 98.6 50 16 163/77 (105) 96 07/13/17 05:41 98.1 42 18 143/65 (91) 98 07/13/17 00:33 18 07/13/17 00:00 07/12/17 21:11 98.5 47 18 135/82 (99) 98 07/12/17 15:10 40 07/12/17 15:08 98.3 47 18 157/68 (97) 97 I/O 07/12/17 07/12/17 07/12/17 07/13/17 07/13/17 07/13/17 06:59 14:59 22:59 06:59 14:59 22:59 Intake Total 300 ml 400 ml Balance 300 ml 400 ml Intake Oral 300 ml 400 ml Result Diagram: 07/12/17 1300 07/12/17 1020 Imaging Last Impressions Head CT 07/11/179 Signed Impressions: Service Date/Time: Tuesday, July 11, 2017 18:52 - CONCLUSION: No acute intracranial abnormality is identified. Phu Henley MD Chest X-Ray 07/11/179 Signed Impressions: Service Date/Time: Tuesday, July 11, 2017 18:59 - CONCLUSION: Underinflation with atelectasis at the bases. Otherwise, no acute finding is identified. Phu Henley MD Abdomen/Pelvis CT 07/11/17 0000 Signed Impressions: Service Date/Time: Tuesday, July 11, 2017 20:38 - CONCLUSION: 1. No acute finding is identified within the abdomen or pelvis. 2. 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 Phu Henley MD Objective Remarks GENERAL: Well-developed well-nourished overweight middle-aged black female in no acute distress, lying in bed. Awake and alert. Appears comfortable. SKIN: Warm and dry. No rash. HEAD: Atraumatic, normocephalic. No facial droop. EYES: Extraocular movements intact. No sclera icterus. No lid lag. ENT: No nasal bleeding or drainage. Airway patent. Moist mucous membranes. NECK: Trachea midline. CARDIOVASCULAR: Bradycardia. No murmurs rubs or gallops appreciated. RESPIRATORY: Nonlabored. No obvious rhonchi or wheezing. Clear to auscultation. Breath sounds equal bilaterally. GASTROINTESTINAL: Abdomen soft, nondistended, nontender. BS normal. MUSCULOSKELETAL: Extremities without clubbing, cyanosis, or edema. No obvious deformities. NEUROLOGICAL: Awake, alert and oriented x4. No focal neurologic deficits. Moving both upper and lower extremities spontaneously. Medications and IVs Current Medications Medications (Trade) Dose Ordered Sig/Rm Route Start Time Stop Time Status Last Admin (Antivert) 25 mg Q6H PRN PO 07/11/17 21:30 (Ativan Inj) 1 mg Q2H PRN IV PUSH 07/11/17 21:30 Sodium Chloride 1,000 ml @ 100 mls/hr Q10H IV 07/11/17 21:23 07/13/17 06:33 (NS Flush) 2 ml UNSCH PRN IV FLUSH 07/11/17 21:30 (NS Flush) 2 ml BID IV FLUSH 07/12/17 09:00 07/12/17 08:34 (Zofran Inj) 4 mg Q6H PRN IVP 07/11/17 21:30 07/12/17 14:31 (Tylenol) 650 mg Q6H PRN PO 07/11/17 21:30 ([place] 5-325 Mg) 1 tab Q4H PRN PO 07/11/17 21:30 07/12/17 22:41 (Morphine Inj) 2 mg Q3H PRN IV PUSH 07/11/17 21:30 (Nora-Colace) 1 tab BID PO 07/12/17 09:00 07/13/17 09:00 (Milk Of Magnesia Liq) 30 ml Q12H PRN PO 07/11/17 21:30 (Senokot) 17.2 mg Q12H PRN PO 07/11/17 21:30 07/13/17 11:40 (Dulcolax Supp) 10 mg DAILY PRN RECTAL 07/11/17 21:30 (Lactulose Liq) 30 ml DAILY PRN PO 07/11/17 21:30 (Antivert) 25 mg Q8HR PO 07/12/17 14:00 07/13/17 06:32 A/P Problem List: (1) Vertigo ICD Code: R42 - Dizziness and giddiness (2) Intractable nausea and vomiting ICD Code: R11.2 - Nausea with vomiting, unspecified (3) Bradycardia ICD Code: R00.1 - Bradycardia, unspecified Status: Acute (4) Dehydration ICD Code: E86.0 - Dehydration Assessment and Plan 56-year-old female that presents to the ED for evaluation of dizziness and nausea. Vertigo Acute onset of dizziness, s/p Meclizine and Ativan w/ some improvement in the ED. -Much improved -CT Head w/ no acute findings. -Meclizine 25mg q8h -Ativan as needed -PT consulted, patient did well with Tomy maneuver. Prescription written for outpatient PT vestibular training. Intractable NV: secondary to above. -Analgesics/antiemetics as needed -Resolved, tolerating diet. -DC IV fluids Bradycardia: Chronic per review of vitals from 2011, possibly compounding above symptoms. No prior work up. -Patient has no cardiac complaints at this time -Trops negative x -Continuous cardiac monitoring -Heart rate 38, cardiology consulted/following patient, appreciate recommendations -2D echo for possible valvular abnormality/cardiomyopathy, pending Dehydration: GFR 79 Secondary to intractable nausea vomiting -GFR now 116 s/p IVF and resolution of N/V -UA unremarkable Prediabetic: BS 144 at admission -No reported history of diabetes -hemoglobin A1c 6.4 -Discussed with patient findings. Discussed lifestyle modifications to include regular exercise program and dietary changes. Recommended follow-up with PCP in 3 months to have A1c level rechecked. DVT Prophylaxis: SCD/Teds. Discharge patient to home Condition on discharge: Improved Heart healthy Diet as tolerated Ad Fidelia activity Rx written: Meclizine, Zofran Follow-up with primary care physician and cardiology Discharge Planning Discharge pending echocardiogram completion/results and cardiology clearance, discharge likely later today Dinorah Rodriges Jul 13, 2017 13:30
--- NOTE | 2017-07-13 14:44 | ECHRPT ---
Indication: CARDIOMYOPATHY CONCLUSIONS Normal left ventricular size and wall thickness. The left ventricular systolic function is normal wi th an estimated ejection fraction in the range of 50-55%. No definite wall motion abnormalities. A fals e tendon is evident in the left ventricle. Trileaflet aortic valve. Trace to mild aortic regurgitation. Structurally normal tricuspid valve. Trace tricuspid regurgitation. BP: 163 / 77 HR: 48 Rhythm: MEASUREMENTS (Male / Female) Normal Values Technical Quality:Good 2D ECHO LV Diastolic Diameter PLAX 4.7 cm 4.2 - 5.9 / 3.9 - 5.3 cm LV Systolic Diameter PLAX 3.5 cm IVS Diastolic Thickness 1.1 cm 0.6 - 1.0 / 0.6 - 0.9 cm LVPW Diastolic Thickness 0.8 cm 0.6 - 1.0 / 0.6 - 0.9 cm LV Relative Wall Thickness 0.4 RV Internal Dim ED PLAX 2.0 cm LA Systolic Diameter LX 3.5 cm 3.0 - 4.0 / 2.7 - 3.8 cm DOPPLER Mitral E Point Velocity 112.0 cm/s TR Peak Velocity 223.0 cm/s TR Peak Gradient 19.9 mmHg FINDINGS LEFT VENTRICLE Normal left ventricular size and wall thickness. The left ventricular systolic function is normal wi th an estimated ejection fraction in the range of 50-55%. No definite wall motion abnormalities. A fals e tendon is evident in the left ventricle. RIGHT VENTRICLE Normal right ventricular size and systolic function. LEFT ATRIUM The left atrial size is upper limits of normal. RIGHT ATRIUM The right atrial size is normal. ATRIAL SEPTUM Normal atrial septal thickness without atrial level shunting by limited color doppler interrogation. AORTA The aortic root and proximal ascending aorta are normal in size on limited imaging. MITRAL VALVE Structurally normal mitral valve. No mitral valve stenosis or regurgitation. AORTIC VALVE Trileaflet aortic valve. Trace to mild aortic regurgitation. TRICUSPID VALVE Structurally normal tricuspid valve. Trace tricuspid regurgitation. PULMONARY VALVE The pulmonary valve is not well visualized. VESSELS The inferior vena cava is normal in size. PERICARDIUM No pericardial effusion. Josh Mullins MD (Electronically Signed) Final Date:13 July 2017 14:43
--- NOTE | 2017-07-13 15:40 | PD.CARD.PN ---
Subjective Subjective Remarks Vertigo improving w rehab, no CP or SOB Objective Medications Current Medications Medications (Trade) Dose Ordered Sig/Rm Route Start Time Stop Time Status Last Admin (Antivert) 25 mg Q6H PRN PO 07/11/17 21:30 (Ativan Inj) 1 mg Q2H PRN IV PUSH 07/11/17 21:30 (NS Flush) 2 ml UNSCH PRN IV FLUSH 07/11/17 21:30 (NS Flush) 2 ml BID IV FLUSH 07/12/17 09:00 07/12/17 08:34 (Zofran Inj) 4 mg Q6H PRN IVP 07/11/17 21:30 07/12/17 14:31 (Tylenol) 650 mg Q6H PRN PO 07/11/17 21:30 ([place] 5-325 Mg) 1 tab Q4H PRN PO 07/11/17 21:30 07/12/17 22:41 (Morphine Inj) 2 mg Q3H PRN IV PUSH 07/11/17 21:30 (Nora-Colace) 1 tab BID PO 07/12/17 09:00 07/13/17 09:00 (Milk Of Magnesia Liq) 30 ml Q12H PRN PO 07/11/17 21:30 (Senokot) 17.2 mg Q12H PRN PO 07/11/17 21:30 07/13/17 11:40 (Dulcolax Supp) 10 mg DAILY PRN RECTAL 07/11/17 21:30 (Lactulose Liq) 30 ml DAILY PRN PO 07/11/17 21:30 (Antivert) 25 mg Q8HR PO 07/12/17 14:00 07/13/17 06:32 Vital Signs / I&O Vital Signs Date Time Temp Pulse Resp B/P (MAP) Pulse Ox O2 Delivery O2 Flow Rate FiO2 07/13/17 13:28 98.6 47 18 141/65 (90) 95 07/13/17 08:00 52 07/13/17 07:09 98.6 50 16 163/77 (105) 96 07/13/17 05:41 98.1 42 18 143/65 (91) 98 07/13/17 00:33 18 07/13/17 00:00 07/12/17 21:11 98.5 47 18 135/82 (99) 98 I/O 07/12/17 07/12/17 07/12/17 07/13/17 07/13/17 07/13/17 06:59 14:59 22:59 06:59 14:59 22:59 Intake Total 300 ml 400 ml Balance 300 ml 400 ml Intake Oral 300 ml 400 ml Physical Exam GENERAL: In NAD SKIN: Warm and dry. HEAD: Normocephalic. EYES: No scleral icterus. No injection or drainage. NECK: Supple, trachea midline. No JVD or lymphadenopathy. CARDIOVASCULAR: Regular rate and rhythm without murmurs, gallops, or rubs. RESPIRATORY: Breath sounds equal bilaterally. No accessory muscle use. GASTROINTESTINAL: Abdomen soft, non-tender, nondistended. MUSCULOSKELETAL: No cyanosis, or edema. Laboratory Laboratory Tests Test 07/12/17 19:00 Urine Color YELLOW Urine Turbidity CLEAR Urine pH 6.0 Urine Specific [place] 1.018 Urine Protein NEG mg/dL Urine Glucose (UA) NEG mg/dL Urine Ketones 10 mg/dL Urine Occult Blood TRACE Urine Nitrite NEG Urine Bilirubin NEG Urine Urobilinogen LESS THAN 2.0 MG/DL Urine Leukocyte Esterase NEG Urine RBC 1 /hpf Urine WBC LESS THAN 1 /hpf Urine Squamous Epithelial Cells 3 /hpf Urine Bacteria RARE /hpf Urine Mucus FEW /lpf Microscopic Urinalysis Comment CULT NOT INDICATED Urine Opiates Screen NEG Urine Barbiturates Screen NEG Urine Amphetamines Screen NEG Urine Benzodiazepines Screen NEG Urine Cocaine Screen NEG Urine Cannabinoids Screen POS Assessment and Plan Problem List: (1) Vertigo ICD Codes: R42 - Dizziness and giddiness (2) Bradycardia ICD Codes: R00.1 - Bradycardia, unspecified Status: Acute (3) Prediabetes ICD Codes: R73.03 - Prediabetes (4) Nausea & vomiting ICD Codes: R11.2 - Nausea with vomiting, unspecified Status: Acute (5) Dizziness ICD Codes: R42 - Dizziness and giddiness Status: Acute (6) Dehydration ICD Codes: E86.0 - Dehydration Assessment and Plan No angina or CHF. Vertigo improving. Echo w nl LV systolic fx. Increase activity. DC home. F/u w PCP. Problem Qualifiers (1) Nausea & vomiting: Qualified Codes: R11.2 - Nausea with vomiting, unspecified Angel Luis Hunt MD Jul 13, 2017 15:40
== END 2017-07-13 18:56 | disposition home or self-care (01) ==
LOC: NEPE 18:14 → NEDA 21:22 → NEPHCDU 22:17
PROVIDERS: ADMIT Family Medicine; ATTEND Family Medicine
DX: R42 Dizziness and giddiness (principal); R11.2 Nausea with vomiting, unspecified; R00.1 Bradycardia, unspecified; R73.03 Prediabetes; E86.0 Dehydration; F12.90 Cannabis use, unspecified, uncomplicated; R94.31 Abnormal electrocardiogram [ECG] [EKG]
CPT/HCPCS: 70450; 71045; 74177; 80053; 80307; 81001; 82550; 82552; 83036; 83690; 83735; 84443; 84484; 85025; 93005; 93306; 96361; 96374; 96375; 96376; 97112; 97163; 99285; G0378; G8987; G8988; J2060; J2405; J7030; Q9967